=== PATIENT | female | born 1935 | race Caucasian/White ===

== ENCOUNTER 2017-05-11 12:52 | Observation (INO) | payer OTHER, BC ==
--- NOTE | 2017-05-11 13:04 | PDOC ---
History of Present Illness <Zeina De La Torre - Last Filed: 05/11/17 15:48> - General History Source: Patient, Family (Son) Exam Limitations: No Limitations - History of Present Illness Initial Comments: 05/11/17 14:23 The patient is a 82 year old female with a significant PMH of deep vein thrombosis and hypothyroidism who presents to the emergency department after experiencing 2 syncopal episodes this morning. The patient reports that she was using the bathroom when she experienced the two syncopal episodes. The patient' s son witnessed the two syncopal episodes, both 5 to 10 seconds each with the second episode occurring 3 minutes after the first. The patient reports that she did not hit her head. The patient's son reports that the patient was unresponsive and staring blankly during both episodes. The patient does note associated nausea and clamminess. The patient denies confusion when she woke up , but wanted to rest after the syncopal episodes. The patient states that she has not been eating or drinking as much as she usually does. The patient notes that she spends most of her time in bed. The patient reports that she is not currently taking Warfarin or her hypothyroidism meds. The patient also notes that her most recent fall was on Thursday. She reports persistent right hip pain and notes that she has a bruise on her left leg. She did not experience loss of consciousness during her fall. She has not been evaluated after the fall. The patient denies chest pain, shortness of breath, and headache. Denies fever, chills, vomit, diarrhea and constipation. Denies dysuria, frequency, urgency and hematuria. Allergies: NKA Past surgical history: None reported. Social history: No reported alcohol, drug, or cigarette use. PCP: Dr. Britton <Lala Nowak - Last Filed: 05/11/17 16:10> - General Stated Complaint: SYNCOPE Time Seen by Provider: 05/11/17 13:03 Past History <Zeina De La Torre - Last Filed: 05/11/17 15:48> <Lala Nowak - Last Filed: 05/11/17 16:10> - Past Medical History Allergies/Adverse Reactions: Allergies Allergy/AdvReac Type Severity Reaction Status Date / Time aspirin Allergy Verified 05/11/17 13:07 Home Medications: Ambulatory Orders Levothyroxine [Synthroid -] 255 mcg PO DAILY 05/11/17 Warfarin Sodium 5 mg PO ASDIR 05/11/17 Warfarin Sodium [Coumadin] 7.5 mg PO ASDIR 05/11/17 Review of Systems - Review of Systems Able to Perform ROS?: Yes Comments:: 05/11/17 14:26 GENERAL/CONSTITUTIONAL: No fever or chills. HEAD, EYES, EARS, NOSE AND THROAT: No change in vision. No ear pain or discharge. No sore throat. CARDIOVASCULAR: No chest pain or shortness of breath. RESPIRATORY: No cough, wheezing, or hemoptysis. GASTROINTESTINAL: No nausea, vomiting, diarrhea or constipation. GENITOURINARY: No dysuria, frequency, or change in urination. MUSCULOSKELETAL: (+) Right hip pain. No neck pain. SKIN: No rash NEUROLOGIC: (+) Syncope. No headache, vertigo, loss of consciousness, or change in strength/sensation. ENDOCRINE: No increased thirst. No abnormal weight change. HEMATOLOGIC/LYMPHATIC: No anemia, easy bleeding, or history of blood clots. ALLERGIC/IMMUNOLOGIC: No hives or skin allergy. <Lala Nowak - Last Filed: 05/11/17 16:10> *Physical Exam - Vital Signs Last Vital Signs Temp Pulse Resp BP Pulse Ox 98.1 F 79 20 146/60 100 05/11/17 13:07 05/11/17 13:07 05/11/17 13:07 05/11/17 13:07 05/11/17 13:07 - Physical Exam Comments: 05/11/17 14:27 GENERAL: (+) Ill-appearing. Awake, alert, and fully oriented. HEAD: No signs of trauma EYES: PERRLA, EOMI, sclera anicteric, conjunctiva clear NECK: Normal ROM, supple, no lymphadenopathy, JVD, or masses LUNGS: Breath sounds equal, clear to auscultation bilaterally. No wheezes, and no crackles HEART: Regular rate and rhythm, normal S1 and S2, no murmurs, rubs or gallops ABDOMEN: Soft, nontender, normoactive bowel sounds. No guarding, no rebound. No masses EXTREMITIES: (+) Bruise on the left leg. Normal range of motion. No clubbing or cyanosis. No cords, erythema, or tenderness NEUROLOGICAL: Cranial nerves II through XII grossly intact. Normal speech, normal gait SKIN: Warm, normal turgor, no rashes or lesions noted. <Lala Nowak - Last Filed: 05/11/17 16:10> ED Treatment Course - LABORATORY CBC & Chemistry Diagram: 05/11/17 14:20 05/11/17 14:20 <Zeina De La Torre - Last Filed: 05/11/17 15:48> - LABORATORY CBC & Chemistry Diagram: 05/11/17 14:20 05/11/17 14:20 <Lala Nowak - Last Filed: 05/11/17 16:10> Medical Decision Making - Medical Decision Making 05/11/17 15:48 Pt presents to the ED complaining of syncope x 2. Was in her usual state of health until 5 days ago when she fell. Had persistent R hip pain but did not seek medical care. Patient was able to get up on her own, but has been primarily in bed since then. Today, she had two episodes of syncope with diaphoresis and lightheadness prodrome immediately after using the bathroom. Denies chest pain or shortness of breath. Denies abdominal pain. EKG is NSR with no evidence of ischemia. Will admit to medicine for syncope work up. <Zeina De La Torre - Last Filed: 05/11/17 15:48> - Medical Decision Making 05/11/17 15:40 Exam: Chest XR Who interpreted: Dr. Malone Reviewed by: Dr. De La Torre Impression: No acute pathology. Possible granuloma or nodule by right first rib. Exam: Head CT Who interpreted: Dr. Malone Reviewed by: Dr. De La Torre Impression: No CT evidence of acute intracranial pathology. <Lala Nowak - Last Filed: 05/11/17 16:10> *DC/Admit/Observation/Transfer - Discharge Dispostion Admit: Yes <Zeina De La Torre - Last Filed: 05/11/17 15:48> - Attestations Scribe Attestion: 05/11/17 14:27 Documentation prepared by Lala Nowak, acting as medical auditor for Zeina De La Torre MD. <Lala Nowak - Last Filed: 05/11/17 16:10> Diagnosis at time of Disposition: Syncope and collapse - Discharge Dispostion Condition at time of disposition: Good - Referrals Referrals: STAFF,NOT ON [Primary Care Provider] -
[2017-05-11 13:09] VITALS: BMI 34.3
[2017-05-11 14:34] LABS: BASOPHIL 0.4 % (0-2.0); EOSINOPHIL 0.4 % (0-4.5); MCH 25.9 pg (25.7-33.7); MCHC 32.2 g/dl (32.0-36.0); MEAN CELL VOLUME 80.5 fl (80-96); MEAN PLT VOLUME 8.2 fl (7.5-11.1); NEUTROPHILS 85.9 % (42.8-82.8); PLATELET COUNT 206 K/MM3 (134-434); RDW 15.4 % (11.6-15.6); WHITE BLOOD COUNT 11.9 K/mm3 (4.0-10.0)
[2017-05-11 14:55] LABS: INR 1.32 (0.82-1.09); PROTHROMBIN TIME (PATIENT) 14.9 SEC (9.98-11.88)
[2017-05-11 14:58] LABS: ACTIVATED PTT 27.3 SECONDS (26.9-34.4)
[2017-05-11 15:12] LABS: ALBUMIN 3.2 g/dl (3.4-5.0); ANION GAP 5 (8-16); BILIRUBIN,TOTAL 0.5 mg/dL (0.2-1.0); CALCIUM 7.6 mg/dL (8.5-10.1); CO2 29 mmol/L (21-32); CREATININE 0.7 mg/dL (0.55-1.02); GLUCOSE,RANDOM 118 mg/dL (74-106); SGOT/AST 18 U/L (15-37); SGPT/ALT 20 U/L (12-78); TOT PROT 6.2 g/dl (6.4-8.2)
[2017-05-11 15:21] LABS: ALK PHOS 67 U/L (45-117); CPK 140 IU/L (26-192); THYROID STIMULATING HORMONE 2.93 uIU/ml (0.358-3.74); TROPONIN I < 0.02 ng/ml (0.00-0.05)
--- NOTE | 2017-05-11 17:44 | HP ---
Admitting History and Physical - Admission History of Present Illness: - 82 year old female with a significant PMH of deep vein thrombosis and hypothyroidism who presents to the emergency department after experiencing 2 syncopal episodes this morning. The patient reports that she was using the bathroom when she experienced the two syncopal episodes. The patient's son witnessed the two syncopal episodes, both 5 to 10 seconds each with the second episode occurring 3 minutes after the first. The patient reports that she did not hit her head. The patient's son reports that the patient was unresponsive and staring blankly during both episodes. The patient does note associated nausea and clamminess. The patient denies confusion when she woke up, but wanted to rest after the syncopal episodes. The patient states that she has not been eating or drinking as much as she usually does. The patient notes that she spends most of her time in bed. The patient reports that she is not currently taking Warfarin or her hypothyroidism meds. The patient also notes that her most recent fall was on Thursday. She reports persistent right hip pain and notes that she has a bruise on her left leg. She did not experience loss of consciousness during her fall. She has not been evaluated after the fall. - Smoking History Smoking history: Former smoker Have you smoked in the past 12 months: No If you are a former smoker, when did you quit?: many years ago Home Medications - Allergies Allergies/Adverse Reactions: Allergies Allergy/AdvReac Type Severity Reaction Status Date / Time aspirin Allergy Verified 05/11/17 13:07 - Home Medications Home Medications: Ambulatory Orders Warfarin Sodium 5 mg PO ASDIR 05/11/17 Warfarin Sodium [Coumadin] 7.5 mg PO ASDIR 05/11/17 Levothyroxine [Synthroid -] 25 mcg PO DAILY 05/12/17 Physical Examination Vital Signs: Vital Signs Temperature 98.1 F 05/11/17 13:07 Pulse Rate 79 05/11/17 13:07 Respiratory Rate 20 05/11/17 13:07 Blood Pressure 146/60 05/11/17 13:07 O2 Sat by Pulse Oximetry (%) 100 05/11/17 13:07 HENT: Yes: Atraumatic Neck: Yes: Supple Cardiovascular: Yes: Regular Rate and Rhythm Respiratory: Yes: CTA Bilaterally Gastrointestinal: Yes: Normal Bowel Sounds Extremities: Yes: WNL Neurological: Yes: Alert, Oriented Labs: CBC, BMP 05/11/17 14:20 05/11/17 14:20 Problem List - Problems (1) Syncope and collapse Assessment/Plan: admit tele seems like vasovagal shock fu cardiac profile Code(s): R55 - SYNCOPE AND COLLAPSE (2) DVT (deep venous thrombosis) Code(s): I82.409 - ACUTE EMBOLISM AND THOMBOS UNSP DEEP VN UNSP LOWER EXTREMITY Qualifiers: DVT location: lower extremity Affected thrombotic vein of extremity: unspecified lower extremity distal vein Chronicity: chronic Laterality: left Qualified Code(s): I82.5Z2 - Chronic embolism and thrombosis of unspecified deep veins of left distal lower extremity (3) Hypothyroidism Code(s): E03.9 - HYPOTHYROIDISM, UNSPECIFIED Qualifiers: Hypothyroidism type: unspecified Qualified Code(s): E03.9 - Hypothyroidism , unspecified (4) Palpitation Code(s): R00.2 - PALPITATIONS Assessment/Plan Laboratory Tests 05/11/17 05/11/17 05/11/17 14:20 14:20 14:20 WBC 11.9 H RBC 4.72 Hgb 12.2 Hct 38.0 MCV 80.5 MCH 25.9 MCHC 32.2 RDW 15.4 Plt Count 206 MPV 8.2 Neutrophils % 85.9 H Lymphocytes % 5.3 L Monocytes % 8.0 Eosinophils % 0.4 Basophils % 0.4 PT with INR 14.90 H INR 1.32 H PTT (Actin FS) 27.3 Sodium 140 Potassium 3.8 Chloride 106 Carbon Dioxide 29 Anion Gap 5 L BUN 25 H Creatinine 0.7 Creat Clearance w eGFR > 60 Random Glucose 118 H Calcium 7.6 L Total Bilirubin 0.5 AST 18 ALT 20 Alkaline Phosphatase 67 Creatine Kinase 140 Troponin I < 0.02 Total Protein 6.2 L Albumin 3.2 L TSH 2.93 Blood Type Antibody Screen 05/11/17 05/11/17 05/11/17 14:20 14:20 18:42 WBC RBC Hgb Hct MCV MCH MCHC RDW Plt Count MPV Neutrophils % Lymphocytes % Monocytes % Eosinophils % Basophils % PT with INR INR PTT (Actin FS) Sodium 144 Potassium 3.2 L Chloride 112 H Carbon Dioxide 26 Anion Gap 6 L BUN 19 H D Creatinine 0.5 L D Creat Clearance w eGFR > 60 Random Glucose 105 Calcium 6.7 L* Total Bilirubin 0.4 AST 14 L D ALT 17 Alkaline Phosphatase 54 Creatine Kinase Troponin I Total Protein 5.2 L Albumin 2.7 L TSH Cancelled Blood Type A NEGATIVE Antibody Screen Negative 05/11/17 05/12/17 05/12/17 18:42 03:12 06:50 WBC RBC Hgb Hct MCV MCH MCHC RDW Plt Count MPV Neutrophils % Lymphocytes % Monocytes % Eosinophils % Basophils % PT with INR INR PTT (Actin FS) Sodium Potassium Chloride Carbon Dioxide Anion Gap BUN Creatinine Creat Clearance w eGFR Random Glucose Calcium Total Bilirubin AST ALT Alkaline Phosphatase Creatine Kinase 113 123 Troponin I < 0.02 < 0.02 Total Protein Albumin TSH 3.08 D Blood Type Antibody Screen 05/12/17 05/12/17 06:50 06:50 WBC 7.2 D RBC 4.65 Hgb 12.2 Hct 37.4 MCV 80.4 MCH 26.3 MCHC 32.7 RDW 15.3 Plt Count 212 MPV 8.4 Neutrophils % 67.3 D Lymphocytes % 19.8 D Monocytes % 10.6 H Eosinophils % 1.8 D Basophils % 0.5 PT with INR 15.10 H INR 1.34 H PTT (Actin FS) Sodium Potassium Chloride Carbon Dioxide Anion Gap BUN Creatinine Creat Clearance w eGFR Random Glucose Calcium Total Bilirubin AST ALT Alkaline Phosphatase Creatine Kinase Troponin I Total Protein Albumin TSH Blood Type Antibody Screen Active Medications Generic Name Dose Route Start Last Admin Trade Name Freq PRN Reason Stop Dose Admin Acetaminophen 650 mg 05/11/17 23:56 05/11/17 23:55 Tylenol - PO 650 mg Q6H PRN Administration FEVER OR PAIN Levothyroxine Sodium 250 mcg 05/12/17 07:00 05/12/17 07:56 Synthroid - PO 250 mcg DAILY@0700 [facility] Administration Warfarin Sodium 5 mg 05/11/17 23:30 05/11/17 23:56 Coumadin - PO 5 mg DAILY@1800 [facility] Administration
[2017-05-11 19:11] LABS: ALBUMIN 2.7 g/dl (3.4-5.0); ANION GAP 6 (8-16); BILIRUBIN,TOTAL 0.4 mg/dL (0.2-1.0); CO2 26 mmol/L (21-32); CPK 113 IU/L (26-192); CREATININE 0.5 mg/dL (0.55-1.02); GLUCOSE,RANDOM 105 mg/dL (74-106); SGOT/AST 14 U/L (15-37); SGPT/ALT 17 U/L (12-78); TOT PROT 5.2 g/dl (6.4-8.2)
[2017-05-11 19:12] LABS: ALK PHOS 54 U/L (45-117); TROPONIN I < 0.02 ng/ml (0.00-0.05)
[2017-05-11 19:13] LABS: CALCIUM 6.7 mg/dL (8.5-10.1)
[2017-05-11] MEDS ORDERED: WARFARIN NA 5 MG TABLET (UD) PO SCH (21:30)
[2017-05-11] MEDS ORDERED: ACETAMINOPHEN 325 MG TABLET (FP) ONE (23:49)
[2017-05-11] MEDS: ACETAMINOPHEN 325 MG TABLET (FP) PO PRN (23:55)
[2017-05-11] MEDS: WARFARIN NA 5 MG TABLET (UD) PO SCH (23:56)
[2017-05-12 03:48] LABS: CPK 123 IU/L (26-192)
[2017-05-12 03:49] LABS: TROPONIN I < 0.02 ng/ml (0.00-0.05)
[2017-05-12 07:30] LABS: INR 1.34 (0.82-1.09); PROTHROMBIN TIME (PATIENT) 15.1 SEC (9.98-11.88)
[2017-05-12 07:37] LABS: BASOPHIL 0.5 % (0-2.0); EOSINOPHIL 1.8 % (0-4.5); MCH 26.3 pg (25.7-33.7); MCHC 32.7 g/dl (32.0-36.0); MEAN CELL VOLUME 80.4 fl (80-96); MEAN PLT VOLUME 8.4 fl (7.5-11.1); NEUTROPHILS 67.3 % (42.8-82.8); PLATELET COUNT 212 K/MM3 (134-434); RDW 15.3 % (11.6-15.6); WHITE BLOOD COUNT 7.2 K/mm3 (4.0-10.0)
[2017-05-12] MEDS: LEVOTHYROXINE NA 125 MCG TABLET (FP) PO SCH (07:56)
[2017-05-12] MEDS ORDERED: LEVOTHYROXINE NA 200 MCG TABLET PO SCH (10:00)
--- NOTE | 2017-05-12 10:29 | EKG ---
Test Reason : Blood Pressure : / mmHG Vent. Rate : 072 BPM Atrial Rate : 075 BPM P-R Int : 000 ms QRS Dur : 094 ms QT Int : 424 ms P-R-T Axes : 053 -08 034 degrees QTc Int : 464 ms POOR DATA QUALITY, INTERPRETATION MAY BE ADVERSELY AFFECTED NORMAL SINUS RHYTHM MINIMAL VOLTAGE CRITERIA FOR LVH, MAY BE NORMAL VARIANT BORDERLINE ECG NO PREVIOUS ECGS AVAILABLE Confirmed by TIM GREEN, MIGUEL ([id number]) on 05/12/2017 10:28:40 AM Referred By: Confirmed By:MIGUEL DUMONT MD
--- NOTE | 2017-05-12 11:38 | CON.CARD ---
Consult Consult Specialty:: Cardiology Referred by:: Dr. Davis Reason for Consultation:: Cardiac evaluation - History of Present Illness Chief Complaint: Syncope History of Present Illness: Patient is an 82 year old female with underlying history of multiple DVT of left lower extremity now has been on anticoagulation with Coumadin, in addition to hypothyoidism on replacement therapy now presents with multiple syncopal episodes. She had a mechanical fall just before [place] and had a witnessed two syncopal episode, both 5-10 seconds each time. She was witnessed by her son and this happened in the bathroom.She complained of palpitation and was associated with nausea, sweating and feeling clammy. She has had one syncopal episode years ago when she was young just after her . She denies chest pain or shortness of breath. She denies paroxysmal nocturnal dyspnea or orthopnea. She denies fever or chills. She denies headache or lightheadedness. Cardiology consultation was called for further evaluation. 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) Endocrine: Yes: Hypothyroidism - Past Surgical History Past Surgical History: Yes: Cholecystectomy, - Alcohol/Substance Use Hx Alcohol Use: No History of Substance Use: reports: None - Smoking History Smoking history: Former smoker Have you smoked in the past 12 months: No If you are a former smoker, when did you quit?: many years ago Home Medications - Allergies Allergies/Adverse Reactions: Allergies Allergy/AdvReac Type Severity Reaction Status Date / Time aspirin Allergy Verified 05/11/17 13:07 - Home Medications Home Medications: Ambulatory Orders Warfarin Sodium 5 mg PO ASDIR 05/11/17 Warfarin Sodium [Coumadin] 7.5 mg PO ASDIR 05/11/17 Levothyroxine [Synthroid -] 25 mcg PO DAILY 05/12/17 Family Disease History - Family Disease History Other Family History: No family history of hypercoagulable state Review of Systems - Review of Systems Constitutional: denies: Chills, Fever Cardiovascular: reports: Palpitations. denies: Chest Pain, Shortness of Breath Respiratory: denies: Cough, Hemoptysis, Orthopnea, PND, SOB, SOB on Exertion Gastrointestinal: reports: Nausea. denies: Abdominal Pain, Constipation, Diarrhea, Melena, Rectal Bleeding, Vomiting Genitourinary: denies: Dysuria, Hematuria Musculoskeletal: reports: Back Pain. denies: Joint Pain Neurological: reports: Syncope, Weakness. denies: Dizziness, Headache, Numbness , Seizure, Tremors, Unsteady Gait Vital Signs: Vital Signs Temperature 98.3 F 05/12/17 07:21 Pulse Rate 76 05/12/17 10:45 Respiratory Rate 18 05/12/17 10:45 Blood Pressure 153/79 05/12/17 10:45 O2 Sat by Pulse Oximetry (%) 95 05/12/17 10:45 Neck: Yes: Supple Respiratory: Yes: CTA Bilaterally Gastrointestinal: Yes: Normal Bowel Sounds, Soft. No: Tenderness Cardiovascular: Yes: Regular Rate and Rhythm JVD: No Carotid Bruit: No PMI: Non-Displaced Heart Sounds: Yes: S1, S2. No: Gallop Murmur: Yes: Systolic Murmur, Grade 1 Edema: No - Other Data Labs, Other Data: CBC, BMP 05/12/17 06:50 05/11/17 18:42 INR, PTT INR 1.34 (0.82-1.09) H 05/12/17 06:50 Troponin, BNP 05/11/17 05/11/17 05/12/17 14:20 18:42 03:12 Troponin I < 0.02 < 0.02 < 0.02 Laboratory Results - last 24 hr 05/11/17 05/11/17 05/11/17 14:20 14:20 14:20 WBC 11.9 H RBC 4.72 Hgb 12.2 Hct 38.0 MCV 80.5 MCH 25.9 MCHC 32.2 RDW 15.4 Plt Count 206 MPV 8.2 Neutrophils % 85.9 H Lymphocytes % 5.3 L Monocytes % 8.0 Eosinophils % 0.4 Basophils % 0.4 PT with INR 14.90 H INR 1.32 H PTT (Actin FS) 27.3 Sodium 140 Potassium 3.8 Chloride 106 Carbon Dioxide 29 Anion Gap 5 L BUN 25 H Creatinine 0.7 Creat Clearance w eGFR > 60 Random Glucose 118 H Calcium 7.6 L Total Bilirubin 0.5 AST 18 ALT 20 Alkaline Phosphatase 67 Creatine Kinase 140 Troponin I < 0.02 Total Protein 6.2 L Albumin 3.2 L TSH 2.93 Blood Type Antibody Screen 05/11/17 05/11/17 05/11/17 14:20 14:20 18:42 WBC RBC Hgb Hct MCV MCH MCHC RDW Plt Count MPV Neutrophils % Lymphocytes % Monocytes % Eosinophils % Basophils % PT with INR INR PTT (Actin FS) Sodium 144 Potassium 3.2 L Chloride 112 H Carbon Dioxide 26 Anion Gap 6 L BUN 19 H D Creatinine 0.5 L D Creat Clearance w eGFR > 60 Random Glucose 105 Calcium 6.7 L* Total Bilirubin 0.4 AST 14 L D ALT 17 Alkaline Phosphatase 54 Creatine Kinase Troponin I Total Protein 5.2 L Albumin 2.7 L TSH Cancelled Blood Type A NEGATIVE Antibody Screen Negative 05/12/17 05/12/17 06:50 06:50 WBC 7.2 D RBC 4.65 Hgb 12.2 Hct 37.4 MCV 80.4 MCH 26.3 MCHC 32.7 RDW 15.3 Plt Count 212 MPV 8.4 Neutrophils % 67.3 D Lymphocytes % 19.8 D Monocytes % 10.6 H Eosinophils % 1.8 D Basophils % 0.5 PT with INR 15.10 H INR 1.34 H PTT (Actin FS) Sodium Potassium Chloride Carbon Dioxide Anion Gap BUN Creatinine Creat Clearance w eGFR Random Glucose Calcium Total Bilirubin AST ALT Alkaline Phosphatase Creatine Kinase Troponin I Total Protein Albumin TSH Blood Type Antibody Screen Normal sinus rhythm with minimal LVH Imaging - Results Chest X-ray: Report Reviewed (Unremarkable) X-ray: Report Reviewed (Hip Xray no fracture) Cat Scan: Report Reviewed (Head CT unremarkable) EKG: Report Reviewed Problem List - Problems (1) Hypothyroidism Code(s): E03.9 - HYPOTHYROIDISM, UNSPECIFIED Qualifiers: Hypothyroidism type: unspecified Qualified Code(s): E03.9 - Hypothyroidism , unspecified (2) Palpitation Code(s): R00.2 - PALPITATIONS (3) DVT (deep venous thrombosis) Code(s): I82.409 - ACUTE EMBOLISM AND THOMBOS UNSP DEEP VN UNSP LOWER EXTREMITY Qualifiers: DVT location: lower extremity Affected thrombotic vein of extremity: unspecified lower extremity distal vein Chronicity: chronic Laterality: left Qualified Code(s): I82.5Z2 - Chronic embolism and thrombosis of unspecified deep veins of left distal lower extremity (4) Syncope and collapse Code(s): R55 - SYNCOPE AND COLLAPSE Assessment/Plan 1. Syncope, etiology to be determined - possible vasovagal 2. 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 Hypothyroidism PLAN: 1. Transthoracic echocardiography to assess LV/RV and valvular function - rule out structural heart disease 2. Continue Warfarin to maintain INR 2-3 unless contraindicated 3. Continue thyroid replacement therapy 4. microbial specialist. Consider Holter monitor 5. Check orthostatis 6. If all negative, consider tilt table testing as outpatient Further plans are to follow Sunday Lin MD
--- NOTE | 2017-05-12 19:09 | PN ---
Progress Note, Physician - Current Medication List Current Medications: Active Medications Acetaminophen (Tylenol -) 650 mg PO Q6H PRN PRN Reason: FEVER OR PAIN Last Admin: 05/11/17 23:55 Dose: 650 mg Levothyroxine Sodium (Synthroid -) 250 mcg PO DAILY@0700 [facility] Last Admin: 05/12/17 07:56 Dose: 250 mcg Warfarin Sodium (Coumadin -) 5 mg PO DAILY@1800 [facility] Last Admin: 05/11/17 23:56 Dose: 5 mg - Objective Vital Signs: Vital Signs Temperature 98.4 F 05/12/17 17:51 Pulse Rate 71 05/12/17 17:51 Respiratory Rate 18 05/12/17 17:51 Blood Pressure 133/69 05/12/17 17:51 O2 Sat by Pulse Oximetry (%) 97 05/12/17 17:51 HENT: Yes: Atraumatic Neck: Yes: Supple Cardiovascular: Yes: Regular Rate and Rhythm Respiratory: Yes: CTA Bilaterally Gastrointestinal: Yes: Normal Bowel Sounds Extremities: Yes: WNL Edema: Yes Peripheral Pulses WNL: Yes Neurological: Yes: Alert, Oriented Labs: CBC, BMP 05/12/17 06:50 05/11/17 18:42 INR, PTT INR 1.34 (0.82-1.09) H 05/12/17 06:50 Problem List - Problems (1) Syncope and collapse Assessment/Plan: resolved Code(s): R55 - SYNCOPE AND COLLAPSE (2) DVT (deep venous thrombosis) Assessment/Plan: on coumadin monitor inr Code(s): I82.409 - ACUTE EMBOLISM AND THOMBOS UNSP DEEP VN UNSP LOWER EXTREMITY Qualifiers: DVT location: lower extremity Affected thrombotic vein of extremity: unspecified lower extremity distal vein Chronicity: chronic Laterality: left Qualified Code(s): I82.5Z2 - Chronic embolism and thrombosis of unspecified deep veins of left distal lower extremity (3) Hypothyroidism Assessment/Plan: on meds Code(s): E03.9 - HYPOTHYROIDISM, UNSPECIFIED Qualifiers: Hypothyroidism type: unspecified Qualified Code(s): E03.9 - Hypothyroidism , unspecified (4) Palpitation Code(s): R00.2 - PALPITATIONS Assessment/Plan social work consult for snf vs home health aid pt eval
[2017-05-12] MEDS: WARFARIN NA 5 MG TABLET (UD) PO SCH (19:17)
[2017-05-12] MEDS ORDERED: ACETAMINOPHEN 325 MG TABLET (FP) ONE (19:37)
[2017-05-12] MEDS: ACETAMINOPHEN 325 MG TABLET (FP) PO PRN (19:43)
[2017-05-12 23:35] LABS: ALBUMIN 3.4 g/dl (3.4-5.0); ALK PHOS 64 U/L (45-117); ANION GAP 8 (8-16); BILIRUBIN,TOTAL 0.4 mg/dL (0.2-1.0); CALCIUM 8.5 mg/dL (8.5-10.1); CO2 29 mmol/L (21-32); CREATININE 0.6 mg/dL (0.55-1.02); GLUCOSE,RANDOM 104 mg/dL (74-106); SGOT/AST 16 U/L (15-37); SGPT/ALT 18 U/L (12-78); TOT PROT 6.2 g/dl (6.4-8.2)
[2017-05-13 07:46] LABS: INR 1.29 (0.82-1.09); PROTHROMBIN TIME (PATIENT) 14.6 SEC (9.98-11.88)
[2017-05-13] MEDS ORDERED: LEVOTHYROXINE NA 25 MCG TABLET (FP) PO SCH (09:45)
[2017-05-13 10:23] VITALS: BP 138/70; PULSE 90; TEMP 98
[2017-05-13] MEDS: LEVOTHYROXINE NA 125 MCG TABLET (FP) PO SCH (10:24)
--- NOTE | 2017-05-13 10:27 | PN ---
Progress Note, Physician History of Present Illness: No further near or true syncope. - Current Medication List Current Medications: Active Medications Acetaminophen (Tylenol -) 650 mg PO Q6H PRN PRN Reason: FEVER OR PAIN Last Admin: 05/12/17 19:43 Dose: 650 mg Levothyroxine Sodium (Synthroid -) 25 mcg PO DAILY@0700 [facility] Last Admin: 05/13/17 10:07 Dose: 25 mcg Warfarin Sodium (Coumadin -) 5 mg PO DAILY@1800 [facility] Last Admin: 05/12/17 19:17 Dose: 5 mg - Objective Vital Signs: Vital Signs Temperature 98 F 05/13/17 10:00 Pulse Rate 90 05/13/17 10:21 Respiratory Rate 18 05/13/17 10:00 Blood Pressure 138/70 05/13/17 10:21 O2 Sat by Pulse Oximetry (%) 98 05/13/17 01:00 Constitutional: Yes: No Distress, Calm Neck: Yes: Supple Cardiovascular: Yes: Regular Rate and Rhythm Respiratory: Yes: Regular, Diminished Gastrointestinal: Yes: Normal Bowel Sounds, Soft Edema: No Labs: CBC, BMP 05/12/17 06:50 05/12/17 22:29 INR, PTT INR 1.29 (0.82-1.09) H 05/13/17 05:05 Problem List - Problems (1) DVT (deep venous thrombosis) Code(s): I82.409 - ACUTE EMBOLISM AND THOMBOS UNSP DEEP VN UNSP LOWER EXTREMITY Qualifiers: DVT location: lower extremity Affected thrombotic vein of extremity: unspecified lower extremity distal vein Chronicity: chronic Laterality: left Qualified Code(s): I82.5Z2 - Chronic embolism and thrombosis of unspecified deep veins of left distal lower extremity (2) Hypothyroidism Code(s): E03.9 - HYPOTHYROIDISM, UNSPECIFIED Qualifiers: Hypothyroidism type: unspecified Qualified Code(s): E03.9 - Hypothyroidism , unspecified (3) Syncope and collapse Code(s): R55 - SYNCOPE AND COLLAPSE (4) Anticoagulant long-term use Code(s): Z79.01 - FDC (CURRENT) USE OF ANTICOAGULANTS Assessment/Plan 05/12/2017 Transthoracic echocardiography: Normal LV size and fxn, tr-mild MR 1. Syncope with typical prodromal sxs c/w vasovagal etiology 2. 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 Hypothyroidism PLAN: 1. Continue Warfarin to maintain INR 2-3 2. Continue thyroid replacement therapy 3. No events on telemetry monitoring 4. No further orthostatis 5. Patient may be d/fei as outpatient from [facility] [phone], counselled on abortive maneuvers once prodromal sxs experienced
[2017-05-13] MEDS: ACETAMINOPHEN 325 MG TABLET (FP) PO PRN (11:33)
--- NOTE | 2017-05-14 13:12 | HOL ---
Hook-up date: 2017-05-12 15:02:00 Duration: 08:34:00 Test Indications: PALPITATIONS,SYNCOPE Medications: 22017 QRS complexes 1 Ventricular ectopics which represent <1 % of total QRS comp. 108 Supraventricular ectopics which represent <1 % of total QRS comp. * Paced QRS complexs which represent % of total QRS comp. * % of Time Classified as Noise VENTRICULAR ECTOPY 1 Isolated 0 Bigeminal Cycles 0 Couplets 0 Runs 0 Beats in Runs * Beats LONGEST at * BPM at :: -- * Beats FASTEST at * BPM at :: -- SUPRAVENTRICULAR ECTOPY 96 Isolated 6 Couplets 0 Runs 0 Beats in Runs * Beats LONGEST at * BPM at :: -- * Beats FASTEST at * BPM at :: -- HEART RATES 61 MIN at 21:56:46 2017-05-12 71 AVG 111 MAX at 20:16:19 2017-05-12 LONGEST RR 1.040 secs at 16:52:59 2017-05-12 SCANNED BY CANDACE GALE ON 05/14/17 *Holter was only on for 8 hours. 1. Baseline sinus rhythm with avg hr 71 and range 61-111. 2. No significant bradycardia or pauses. 3. Rare pvcs and pacs. 4. No vt, vf, afib, aflutter, svt. 5. No diary submitted. Confirmed by ELBERT GREEN, DENIZ ([id number]) on 05/14/2017 1:12:27 PM Referred By: MARYAN DUARTE DR Overread By: DENIZ BOSWELL MD
--- NOTE | 2017-05-14 17:29 | DS ---
Physical Examination Vital Signs: Vital Signs Temperature 98 F 05/13/17 10:00 Pulse Rate 90 05/13/17 10:21 Respiratory Rate 18 05/13/17 10:00 Blood Pressure 138/70 05/13/17 10:21 O2 Sat by Pulse Oximetry (%) 98 05/13/17 09:00 Labs: CBC, BMP 05/12/17 06:50 05/12/17 22:29 Discharge Summary Reason For Visit: SYNCOPE Condition: Good - Instructions Referrals: STAFF,NOT ON [Primary Care Provider] - Yousuf Duran MD [Staff Physician] - Disposition: [facility]/HOME HEALTH CARE - Home Medications Comprehensive Discharge Medication List: Ambulatory Orders Warfarin Sodium 5 mg PO ASDIR 05/11/17 Warfarin Sodium [Coumadin] 7.5 mg PO ASDIR 05/11/17 Acetaminophen [Tylenol .Regular Strength -] 650 mg PO Q6H PRN tablet 05/12/17 Levothyroxine [Synthroid -] 25 mcg PO DAILY 05/12/17 dc home with vns
== END 2017-05-13 11:37 | disposition home health service (06) ==
LOC: JER 12:52 → JERBED 15:57 → J4W 05-13 00:16
PROVIDERS: ADMIT Internal Medicine; ATTEND Internal Medicine
DX: R55 Syncope and collapse (principal); E03.9 Hypothyroidism, unspecified; I82.5Z2 Chronic embolism and thrombosis of unspecified deep veins of left distal lower extremity; R00.2 Palpitations; Z88.6 Allergy status to analgesic agent; Z79.01 Long term (current) use of anticoagulants; Z87.891 Personal history of nicotine dependence
CPT/HCPCS: 36415; 70450-TC; 71010-TC; 73523-TC; 80053; 82550; 84443; 84484; 85025; 85610; 85730; 86850; 86900; 86901; 93005; 93010; 93225; 93226; 93306-TC; 97116-GP; 97161-GP; 99282-25; G0378